=== PATIENT | male | born 1985 ===

== ENCOUNTER → 2020-03-27 15:59 | Outpatient (CLI) | payer OTHER, SELFPAY ==
[2020-03-27 18:27] LABS: COVID19 -Nasal RAPID Negative (Negative)
== END ==
PROVIDERS: Visit Provider Physician Assistant
DX: Z01.812 Encounter for preprocedural laboratory examination (principal); Z20.822 Contact with and (suspected) exposure to COVID-19
CPT/HCPCS: 87635

== ENCOUNTER 2020-03-29 11:21 | Observation (INO) | payer OTHER, SELFPAY ==
[2020-03-29] VITALS (21 sets, daily range): BP systolic 49–157; BP diastolic 21–93; PULSE 75–96; RESP 12–20; TEMP 35.8–37.2; O2SAT 95–100; BMI 26.6
--- NOTE | 2020-03-29 | PATH_ITS ---
[facility] Accession Number: [id number] . 01 Material submitted: . femur - RIGHT FEMORAL HEAD . 01 Clinical history: . OPB . 01 Diagnosis: Right Femoral Head, Resection: Consistent with degenerative joint disease (osteoarthritis). . Note: Sections show irregular cartilaginous thinning with degenerative changes consistent with degenerative joint disease/osteoarthritis. Clinical and radiographic correlation is recommended. [facility] 04/03/2020 1603 Local . 01 Electronically signed: . Agustin Quintana MD, Dermatopathologist NPI- [id number] . 01 Gross description: . The specimen is received in formalin, consists of a 6.0 x 5.5 x 5.4 cm femoral head and neck with a ragged bone margin. The fovea centralis measures 1.0 x 0.4 cm and there is a 2.0 x 0.8 x 0.7 cm ligamentum teres. The articular surface is blanton to blanton-white with focal areas of hemorrhage and eburnation. Sectioning reveals blanton-pink trabeculated cut surfaces. No masses are identified. [employer] sections are submitted following decalcification in cassettes A1-A2. ([id number]) /MRV 04/03/2020 1601 Local . 01 Pathologist provided ICD-10: M16.11 . 01 CPT . 110502, [id number] Performed at: [address] [facility] [address], [place], [place] [id number] MD Neftaly Gray MD Phone: [phone]
[2020-03-29] MEDS: LACTATED RINGERS 1,000 ML 42 ML IV ×3 (11:38→15:52)
--- NOTE | 2020-03-29 12:52 | PM.PREOP ---
Pre-operative Note COVID-19 COVID-19 status: Negative Result date/Date tested (Pos, Neg/Pending): 03/27/20 Interval Note History & Physical reviewed/Exam performed by Physician: Yes Changes to H&P: No H&P completed within 30 days and has changed as indicated here:: Plan for right anterior YENI
[2020-03-29] MEDS: CEFAZOLIN 2 GM/100 ML FROZ.PIGGY IV ×2 (13:18→22:39)
--- NOTE | 2020-03-29 13:59 | SUR.OPER ---
Supine on padded [place] table with bilateral legs secured in padded positioning boots and suspended in positioning spars, operative leg in traction per surgeon. Head on one pillow. Arm on non-operative side secured on padded armboard <90 degrees abduction. Arm on operative side padded and resting across chest then secured with tape over sheet. Padded perineal post in place per surgeon. Thyroid shield on patient
[2020-03-29] MEDS: TRANEXAMIC ACID 1,000 MG VIAL 2000 MG INJ ×2 (14:04→15:40)
[2020-03-29] MEDS: ROPIVACAINE 0.5% PF 5 MG/ML 20ML VIAL 40 ML INJ (14:06)
[2020-03-29] MEDS: MORPHINE 4 MG/ML INJ INJ (14:07)
[2020-03-29] MEDS: KETOROLAC 30 MG/ML VIAL INJ (14:07)
[2020-03-29] MEDS: SODIUM CHLORIDE IRRIG SOLUTION 250 ML, POVIDONE-IODINE SPONGE STICKS 1 APPLIC IRR (14:14)
--- NOTE | 2020-03-29 15:59 | P.OP_ITS ---
Operative Date/Time/Diagnoses Date of procedure: 03/29/20 Time of procedure: 16:00 Pre-op diagnosis: right hip OA Post-op diagnosis: same Procedure & Clinicians Procedure: right anterior [id number] YENI Same procedure as scheduled: Yes Indications: right HIP advacned OA resistant to further conservative measures Surgeon: Raffaele Allen Senior Maintenance Machinist: Vincent Keen Anesthesia Type: General and Spinal Operative Notes Findings: Right hip osteoarthritis with eburnation of the head as well as head and neck osteophytes. Acetabulum also showed [id number] arthritis with eburnation of the bone. Closure Type: primary Specimen(s): other (Head sent to pathology) Prosthetic devices, grafts, tissues, transplants, or devices: [employer]hew R3 cup 52 mm diameter 3 hole 2x 20mm screws 1x 25mm screw Biolox Delta ceramic 52 mm outside diameter by 36 mm inside diameter acetabular liner Size 7 anthology standard offset Delta Biolox ceramic head 36+ 4 mm Estimated Blood Loss (mL): 300 Procedure in detail: Patient was met in the preoperative holding area where the site and side of surgery were marked by . Informed consent had been reviewed in clinic was also refer you to the preoperative holding area. All last minute questions were answered. Patient was brought back in the operating room where he received a spinal anesthetic and was induced under general anesthesia. He was then transferred onto the [place] table where both feet were placed in well-padded [place] table boots. The right lower extremity then prepped and draped in normal sterile fashion. Surgical time-out was performed verifying the site and side of surgery as well as the implants available. Starting approximately 2 cm distal and 1 cm lateral to the ASIS aiming towards the fibular head a 7 cm long incision in the skin was made with a 10. Blade. Electrocautery was then used to dissect down to love the tensor fascia. A new 10. Blade was then used to incise the tensor fascia. A Allis clamp was placed on the medial leaflet of the tensor fascia and the tensor muscle itself was reflected laterally. A Cobra was then placed over the superior aspect of the femoral neck. A Meyerding retractor was then placed on the lateral border of the rectus femoris and retracted the rectus medially. This point had good exposure to the ascending branches of the for this femoral circumflex vessels. These were coagulated using electrocautery. A 2nd Cobra retractor was then placed under the inferior aspect of the femoral neck and a bent Hohmann retractors placed over the anterior lip of the acetabulum to give us good exposure for capsulotomy. At this point inverted T-shaped capsulotomy was then performed. A FiberWire suture was then used to tag the superior and inferior leaflets of the capsulotomy. The Cobra retractors then placed intracapsularly. This point we had good exposure femoral neck. A reciprocating saw was then used to make the femoral neck cut based off of our preoperative standing template. The femur was then externally rotated 45? and the head was removed with corkscrew. Bent Hohmann retractors were then replaced to give us good exposure to the acetabulum. The pulvinar was then removed using a suction and electrocautery. The labrum was then also removed. At this point we began reaming with a 44 mm Reamer. Fluoroscopy was brought in to match our preoperative template standing films to help direct reaming. We up sized by 2s until we got to a size 50 mm Reamer at which point we started to get some resistance. Then went up by 1-51 mm Reamer this was then used to touch ream the socket and then a 52 mm 3 hole R3 cup was selected. This was placed under fluoroscopic guidance. This had good purchase and the 1st of the [address] had good purchase. The 2nd screw did not have good purchase a 3rd screw was also placed. A trial liner was then placed. Then turned our attention to the femoral side femoral elevator hook was placed underneath the posterior aspect of the femur and the femur was then externally rotated to 120? and extend to the floor and adducted. A bent Hohmann was then placed over the superior aspect of the superior leaflet of the capsulotomy and the capsule was then released off the anterior shoulder of the greater trochanter. This point a large single prong retractor was then placed over the greater trochanter and a Arthur retractor was placed over the calcar. A controlled release of the short external rotators was then performed and the femur was then milled able to be elevated up into the wound. This point I then used a canal finer followed by a chili pepper broach and then began broaching. Started with a size 1 and then upsized to a size 3 and subsequently size 5 then began upsizing by ones to a 6 and 7. A calcar planed off the size 7 broach. We then placed a standard offset neck and reduced the hip with 36+ 0 head. Fluoroscopy was brought in the size 7 broach had good canal fill although we did appear about half a cm long on this side. We then dislocated the hip removed the broach and worked the broch to counter sink by several mm. We then calcar planed again. A size 7 anthology standard offset was then placed and was rotationally stable. We then returned to the acetabular side removed the trial liner and placed the 52 x 36 mm delta Biolox ceramic liner. Taking great care to make sure the liner was well centered. This was then malleted into place and verify that the ring was flush around the acetabular cup. I then selected a 36+ 0 trial head and reduced the hip this was stable to maximal external rotation however with 90? of external rotation and extension the floor started to lever out at about 2[address] to the floor. This point although our leg lengths were near perfect as headache is a 36+ 3 head to give more stability to the hip and avoid axial loading. A 36+ 3 mm ceramic head was then malleted onto the trunnion reduced a final time and was stable with maximal external rotation as well as external rotation to 90? and full extension to the floor. This point final fluoroscopic images were obtained. Local anesthetic was then infiltrated into the superior and inferior leaflet of the capsulotomy in the periarticular soft tissues. Betadine solution was then placed into the wound allowed to sit for several minutes. This was then lavaged with copious normal saline. The capsulotomy was then repaired using a running 1 suture and the FiberWire tag sutures were removed. The tensor fascia layer was then closed with a running Vicryl suture. Subcutaneous closure was then performed using a 2 0 Vicryl interrupted fashion followed by a running 3-0 Stratafix in the subcuticular layer followed by Dermabond and Aquacel dressing. Complications: none Post-operative Condition: stable Disposition: PACU Plan for aftercare: 24 hours post-op abx, ASA 81mg BID for DVT prophylaxis, WBAT RLE
--- NOTE | 2020-03-29 16:34 | DI.RAD.S_ITS ---
PROCEDURE: XR PELVIS 1-2V INDICATIONS: POST OPERATIVE RIGHT HIP TECHNIQUE: 1 view of the lower pelvis acquired. COMPARISON: [facility], CR, XR PELVIS W LATERAL HIP RT, 06/10/2016, 12:04. [facility], CR, XR PELVIS WITH LATERAL HIP RIGHT, 03/20/2020, 9:31. FINDINGS: Bones: Patient is status post right hip arthroplasty, with hardware components in expected positions. The hip joint appears congruent. The visualized bony structures appear intact. Mild left hip osteoarthritis. Soft tissues: Overlying postoperative changes are noted. No suspicious soft tissue densities. IMPRESSION: Expected postsurgical change for right hip arthroplasty. Dictated by: Raquel Dinero MD, PhD on 03/29/2020 at 16:48 Approved by: Raquel Dinero MD, PhD on 03/29/2020 at 16:50
--- NOTE | 2020-03-29 17:06 | SUR.PHASEI ---
Report to que Gil on floor. Pt VSS, denies pain or nausea and sitting up slightly drinking and talking.
[2020-03-29] MEDS: LACTATED RINGERS 1,000 ML 125 ML IV (18:02)
[2020-03-29] MEDS: LACTATED RINGERS 1,000 ML 1000 ML IV ×3 (18:35→21:14)
--- NOTE | 2020-03-29 18:55 | PC.NURSE ---
Addendum entered by Louise Christianson R.N. 03/29/20 23:32: around 2100, pt was hypotensive again 75/47 HR 80's at this time pt reported that he lifted his head up and became symptomatic, notified hospitalist, VO for 1L bolus LR. BP improving with bolus 89/56, supine position. Dr. Denny was also notified and ordered another HH. continue to monitor. Original Note: 1829: [employer] notified me that pt feels dizzy and diaphoretic. checked BP 53/27. placed pt on supine position, trendelenburg. contacted provider and anesthesiologist but unable to reach. notified hospitalist. verbal order for LR bolus. hospitalist came to assess patient. pt is now on tele. BP is slowly going up.
--- NOTE | 2020-03-29 19:14 | PM.CN ---
History of Present Illness Consult details Date Patient Seen: 03/29/20 Time Patient Seen: 18:30 Chief complaint: OPB Reason for consult: postop hypotension Requesting provider: Raffaele Allen Narrative: Patient is a 35-year-old male status post elective right hip replacement for osteoarthritis earlier today. Estimated blood loss noted at 300 cc. Patient became acutely hypotensive this evening. He was actually feeling dizzy and almost passed out in bed. He denies chest pain or dyspnea. He is not on any blood pressure lowering medications. His blood pressure was 53 systolic. I was asked to see patient for hospitalist consult. Meds Home Medications and Allergies Home Medications Medication Instructions Recorded Confirmed Type acetaminophen 650 mg PO Q6H PRN 03/28/20 03/29/20 History Allergies Allergy/AdvReac Type Severity Reaction Status Date / Time No Known Drug Allergies Allergy Verified 03/29/20 11:42 Review of Systems Review of Systems ROS: Yes All systems reviewed with the patient and are negative except as otherwise documented Exam Vital Signs (past 8 hours): - 03/29/20 11:44 03/29/20 16:13 03/29/20 16:15 Temperature 98.1 F 98.9 F Pulse Rate 93 H 79 82 Respiratory Rate 20 14 16 Blood Pressure 157/93 H 49/27 L 55/26 L Pulse Oximetry 100 95 97 03/29/20 16:17 03/29/20 16:18 03/29/20 16:22 Temperature Pulse Rate 75 82 82 Respiratory Rate 13 19 14 Blood Pressure 60/21 L 76/36 L 88/39 L Pulse Oximetry 96 97 98 03/29/20 16:28 03/29/20 16:33 03/29/20 16:43 Temperature Pulse Rate 83 91 H 84 Respiratory Rate 13 12 12 Blood Pressure 96/53 L 102/61 100/56 L Pulse Oximetry 98 98 98 03/29/20 16:58 03/29/20 17:20 03/29/20 17:50 Temperature 97.8 F 98.3 F Pulse Rate 81 89 93 H Respiratory Rate 13 16 16 Blood Pressure 103/59 L 117/62 103/60 Pulse Oximetry 100 100 95 03/29/20 18:20 Temperature 98.1 F Pulse Rate 96 H Respiratory Rate 16 Blood Pressure 92/61 Pulse Oximetry 97 Oxygen Delivery Method Room Air Narrative Exam Narrative: General: Well-developed well-nourished male who is a little lethargic and perspiring HEENT: Pupils equal, anicteric Neck: No lymphadenopathy Lungs: Clear to auscultation Heart: Regular rate and rhythm, no murmur Abdomen: Soft, nontender, no HSM Extremities: Warm, no edema Neurological: Well oriented, able to follow commands, nonfocal Assessment & Plan Assessment & Plan narrative: This is a 35-year-old otherwise healthy male status post elective right hip replacement with postop hypotension. 1. Postop hypotension -likely effect of anesthesia and blood loss -ordered bolus 1 L LR then re-evaluate -telemetry monitoring while hypotensive
[2020-03-29 20:56] LABS: Add Manual Diff / Slide Review NO; Basophils Absolute Auto 0 /uL (0-100); Basophils Percent Auto 0.1 % (0-2); Eosinophils Absolute Auto 0 /uL (0-450); Hematocrit 32.9 % (41-53); Hemoglobin 10.9 g/dL (13.5-17.5); Lymphocytes Absolute Auto 1300 /uL (1100-4500); Lymphocytes Percent Auto 6.3 % (25-40); Mean Corpuscular HGB Conc 33.1 % (30-36); Mean Corpuscular Hemoglobin 28.4 PG (26-34); Mean Corpuscular Volume 85.9 fL (80-100); Monocytes Absolute Auto 900 /uL (0-900); Monocytes Percent Auto 4.2 % (3-14); Neutrophils Absolute Auto 18300 /uL (1500-7000); Neutrophils Percent Auto 89.4 % (50-75); Platelet Count 188 X10^3/uL (150-400); Red Blood Cell Count 3.83 X10^6/uL (4.5-5.9); Red Cell Distribution Width 12.5 % (11.6-14.8); White Blood Cell Count 20.5 X10^3/uL (4.5-11.0)
[2020-03-29] MEDS: ASPIRIN EC 81 MG TABLET PO (22:03)
[2020-03-29 22:15] LABS: Bacteria Urine None Seen; RBC Urine None Seen (0-5/HPF); WBC Urine None Seen (0-5/HPF)
[2020-03-29 22:21] LABS: Appearance Urine UA CLEAR; Bilirubin Urine UA NEGATIVE (NEGATIVE); Color Urine UA YELLOW; Glucose Urine UA NEGATIVE (Negative); Ketones Urine UA TRACE (NEGATIVE); Leukocyte Esterase Urine UA NEGATIVE (NEGATIVE); Nitrite Urine UA NEGATIVE (Negative); Occult Blood Urine UA NEGATIVE (Negative); Protein Urine UA NEGATIVE (Negative); Urobilinogen Urine UA 0.2 E.U./dL (0.2)
[2020-03-29 22:28] LABS: Culture Indicated Urine Cult Not Indicated; Urine Comments Microscopic Normal
[2020-03-29 22:42] LABS: Hemoglobin 9.8 g/dL (13.5-17.5)
[2020-03-29 22:51] LABS: Hematocrit 29.7 % (41-53)
--- NOTE | 2020-03-30 00:24 | PC.NURSE ---
patient is alert and oriented. Breath sounds CTA with RA sat of 98%. HRR. BP remaining low at 90's/50's but is asymptomatic but remaining supine. Telemetry reading was SR. Denies nausea. BT present and is passing flatus. Denies dysuria, frequency or urgency with urination and has been using urinal. Able to move himself in bed. Gait not assessed but patient reports prior to surgery was using a cane for ambulation. Aquacel dressing to right anterior hip is CDI. Denies pain. CMS is intact. Wearing bilateral calf SCD's. Fall risk score is moderate and bed alarm is activated.
[2020-03-30 03:00] VITALS: BP 97/45; PULSE 97; RESP 16; TEMP 36.6; O2SAT 98
[2020-03-30] MEDS: CEFAZOLIN 2 GM/100 ML FROZ.PIGGY IV (04:36)
[2020-03-30 05:51] LABS: Hematocrit 26.3 % (41-53); Hemoglobin 8.8 g/dL (13.5-17.5)
[2020-03-30] MEDS: LACTATED RINGERS 1,000 ML 150 ML IV (06:22)
[2020-03-30 07:51] VITALS: BP 108/60; PULSE 96; RESP 19; TEMP 37; O2SAT 100
[2020-03-30] MEDS: ASPIRIN EC 81 MG TABLET PO ×2 (08:32→20:06)
[2020-03-30] MEDS: DOCUSATE 100 MG CAPSULE PO ×2 (08:32→20:06)
[2020-03-30] MEDS: ACETAMINOPHEN 325 MG TABLET 650 MG PO ×3 (08:32→20:06)
--- NOTE | 2020-03-30 10:06 | PM.PNPO.1 ---
Subjective Subjective Date Patient Seen: 03/30/20 Time Patient Seen: 10:06 Interval history: Patient's pain is mild. Patient has had some dizziness when elevating head of bed. No fever or chills. No nausea or vomiting. Has not yet been out of bed. Denies shortness of breath or chest pain. Exam Vital Signs (past 8 hours): - 03/30/20 03:00 03/30/20 07:51 Temperature 97.8 F 98.6 F Pulse Rate 97 H 96 H Respiratory Rate 16 19 Blood Pressure 97/45 L 108/60 Pulse Oximetry 98 100 Oxygen Delivery Method Room Air Oxygen Flow Rate 0 Narrative Exam Narrative: 35-year-old male resting comfortably in bed in no apparent distress. Right anterior hip dressing clean, dry and intact. Motor functions intact distal bilateral lower extremities. Sensation grossly intact light touch bilateral lower extremities. Both calves are nontender to palpation. Objective Labs Result Diagrams: 03/30/20 05:30 Labs: Laboratory Results - last 24 hr 03/29/20 03/29/20 03/29/20 20:48 22:14 22:32 WBC 20.5 H RBC 3.83 L Hgb 10.9 L 9.8 L Hct 32.9 L 29.7 L MCV 85.9 MCH 28.4 MCHC 33.1 RDW 12.5 Plt Count 188 Neut % (Auto) 89.4 H Lymph % (Auto) 6.3 L [place] % (Auto) 4.2 Eos % (Auto) 0.0 L Baso % (Auto) 0.1 Neut # (Auto) 69383 H Lymph # (Auto) 1300 [place] # (Auto) 900 Eos # (Auto) 0 Baso # (Auto) 0 Urine Color Yellow Urine Appearance Clear Urine pH 6.0 Ur Specific [place] 1.020 Urine Protein Negative Urine Glucose (UA) Negative Urine Ketones Trace H Urine Occult Blood Negative Urine Nitrate Negative Urine Bilirubin Negative Urine Urobilinogen 0.2 Ur Leukocyte Esterase Negative Urine RBC None seen Urine WBC None seen Urine Bacteria None seen Ur Culture Indicated? Cult not indicated Micro UA Comment Microscopic normal Blood Type Antibody Screen 03/29/20 03/30/20 22:32 05:30 WBC RBC Hgb 8.8 L Hct 26.3 L MCV MCH MCHC RDW Plt Count Neut % (Auto) Lymph % (Auto) [place] % (Auto) Eos % (Auto) Baso % (Auto) Neut # (Auto) Lymph # (Auto) [place] # (Auto) Eos # (Auto) Baso # (Auto) Urine Color Urine Appearance Urine pH Ur Specific [place] Urine Protein Urine Glucose (UA) Urine Ketones Urine Occult Blood Urine Nitrate Urine Bilirubin Urine Urobilinogen Ur Leukocyte Esterase Urine RBC Urine WBC Urine Bacteria Ur Culture Indicated? Micro UA Comment Blood Type O Positive Antibody Screen Negative [facility] Medical History Blood pressure elevated without history of HTN Hip bursitis IT band syndrome Lipoma of buttock Primary osteoarthritis of right hip Right knee pain (~2012) Suspected sleep apnea Tendinitis of right hip flexor Social History household members: significant other Smoking Status: Never smoker Assessment & Plan Post-op Postoperative Procedures: Procedures Operation Date: 03/29/20 13:15 Actual Procedures Side Surgeon p Total Hip Arthroplasty/Anterior Approach Right Raffaele Allen MD Postop day 1 status post right anterior ceramic on ceramic total hip arthroplasty. Aspirin 81 mg b.i.d. for DVT prophylaxis. Weightbearing as tolerated right lower extremity. Mobilize with physical therapy. Possible discharge home today. Patient does have assistance at home. WBC elevated yesterday and incentive spirometer ordered. Postop hypotension- hospitalist consulted yesterday. Likely effect of anesthesia and blood loss. Bolus of 1 L lactated Ringer's ordered.
--- NOTE | 2020-03-30 10:35 | PT.IIE ---
Current Diagnoses Unilateral primary osteoarthritis, right hip (03/29/20) Other symptoms and signs involving the nervous system (03/29/20) Surgery Performed Operation Date: 03/29/20 13:15 Actual Procedures p Total Hip Arthroplasty/Anterior Approach(Right) - Raffaele Allen MD Medical History (Last Reviewed 03/30/20 @ 10:08 by Vincent Keen PA-C) Blood pressure elevated without history of HTN Hip bursitis IT band syndrome Lipoma of buttock Primary osteoarthritis of right hip Right knee pain (~2012) Suspected sleep apnea Tendinitis of right hip flexor Physical Therapy Inpatient Evaluation/Re-Eval M1 PT/OT-IP Prior Functional Status Start: 03/30/20 09:03 Freq: NEEDED Status: Active Protocol: Document 03/30/20 10:35 AW (Rec: 03/30/20 12:37 AW [id number]) Medical Review Prior Functional Status Medical History Reviewed Yes Communication WNL. Pt is an effective verbal communicator. 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 For the past few months, he has been using a cane after work due to increased hip pain. Activities of Daily Living and IADL's Pt admits to needing some help with shoes and socks. He is independent for showers. He admits to some difficulty getting on and off the toilet but has not required assist. 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 Social History Household Members significant other Living Arrangements Apartment/Condo Number of Floors (Floors) Two Floors Number of Stairs To Enter/Railing? Level entrance in to apartment with kitchen and living room on main level. Pt climbs 10 steps + landing + 8 steps to bedroom level with right railing on all stairs. Home Environment Standard Height Toilet,Tub/ Shower Home Equipment Straight Cane,Long Handled Shoe Horn,Grab Bars In Shower Employment Status Accounts Receivable Specialist Employed Additional Social History Comment Pt states there is a sink/ vanity on the right side of the toilet. He lives with his significant other who will be home full-time to assist for the first several days. M2 PT-IP Current Condition Start: 03/30/20 09:03 Freq: NEEDED Status: Active Protocol: Document 03/30/20 10:35 AW (Rec: 03/30/20 12:37 AW [id number]) Physical Therapy Current Condition Current Condition Evaluation Date 03/30/20 Treatment Diagnosis s/p R YENI with anterior approach; difficulty in walking Onset Date 03/29/20 Precautions Anterior Hip Precautions No Hip Extension,No Hip External Rotation Other Precautions orthostatic BP Weight Bearing Status Weight Bearing Status Weight Bear as Tolerated M3 PT-IP Subjective Start: 03/30/20 09:03 Freq: NEEDED Status: Active Protocol: Document 03/30/20 10:35 AW (Rec: 03/30/20 12:37 AW [id number]) Subjective Physical Therapy Visit Type Type Initial Evaluation Visit Start Time 10:05 Visit Stop Time 10:35 Total Visit Minutes 30 Notes Pt's SO Andrew present throughout session. Physical Therapy Visit Comments Patient Comments Pt is willing to participate with PT Patient Goals Return home with SO support. Therapy Pain Assessment Pain When Pain Assessed At Rest Location right hip Intensity 0 Scale Used increased with mobility to 1/ 10 Pain Management Techniques Apply Cold,Timing of Activity with Medications M4 PT-IP Mobility and Gait Start: 03/30/20 09:03 Freq: NEEDED Status: Active Protocol: Document 03/30/20 10:35 AW (Rec: 03/30/20 12:37 AW [id number]) PT-Bed Mobility Assessment Supine to Sit Supine to Sit Contact Guard Assistance Scooting Scooting to Edge of Bed Standby Assistance PT-Transfer Assessment Sit to and From Stand Sit to and from Stand Contact Guard Assistance,1 Person Assistance,Use of Upper Extremities Equipment Transfer Assistive Device Gait Belt,Front Wheeled Walker Orthotic/Prosthetic Devices or Brace: No Transfers Transfer Destination Chair Transfer Technique Stand Step Pivot Transfer Ability Level of Assist Contact Guard Assistance,Use of Upper Extremities Comments Mobility Comments Pt was lying in the bed as PT arrived. BP supine was 114/70 HR 109. Instructed pt in anterior hip precautions. He required CGA to complete supine to long sitting and then to pivot his hips toward right EOB. After two minutes, BP was 122/81 HR 120. Pt stood with CGA and used FWW to shift weight laterally. He began to complain of lightheadedness. BP was 100/90 HR 127. Pt was instructed to sit EOB until symptoms cleared . He then stood from the bed CGA and used the FWW to ambulate 5 feet to the chair, transferring CGA. BP was 115/ 58 HR 110. Pt was able to complete sit <> stand from the chair CGA. Pt was positioned in the chair with call light and all needs in reach. Fresh ice pack was provided for anterior hip as pt was beginning to notice increase in pain as noted above. Pt agreed to use the call light for all mobility needs. Gait Assessment Gait Gait Assistance Required: Contact Guard Assist Distance (Feet) 5 Able to Maintain Weight Bearing Status Yes During Gait Assistive Devices Assistive Device Gait Belt,Front Wheeled Walker Orthotic/Prosthetic Devices or Brace: No Gait Deviations General Gait Pattern Antalgic,Decreased Stride Length,Decreased Feet Clearance,Flexed Trunk,Step-to Gait Factors Limiting Gait Function Factors Limiting Gait Function Decreased Activity Tolerance, Decreased Strength,Pain Comments Gait Comments Transfer only. See mobility comments for details. Stair Climbing Assessment Comments Stair Climbing Comments Not assessed. PT-Balance Assessment Sitting Balance and Reactions Static Sitting Balance Ability Good Dynamic Sitting Balance Ability Good Standing Balance and Reactions Static Standing Balance Ability Good Dynamic Standing Balance Ability Good Device Used FWW M5 PT-IP Objective Assessments Start: 03/30/20 09:03 Freq: NEEDED Status: Active Protocol: Document 03/30/20 10:35 AW (Rec: 03/30/20 12:37 AW [id number]) Orientation Orientation/Cognition Level of Alertness Alert Orientation Name,Day of Week,Place, Situation Language Function Ability No Deficits Noted Safety Awareness Understands Safety Issues Memory Description No Deficits Noted Gross Range of Motion Lower Extremity ROM Assessment Right Impaired Strength Lower Extremity Strength Assessment Right Impaired Hip 3+/5 Knee 4/5 Ankle 4+/5 Comments Strength Comments LLE grossly 5/5 Sensation Assessment Sensation Gross Sensation WNL M6 PT-IP Treatment Start: 03/30/20 09:03 Freq: NEEDED Status: Active Protocol: Document 03/30/20 10:35 AW (Rec: 03/30/20 12:37 AW [id number]) Physical Therapy Treatment Exercises Exercises Ankle Pumps,Gluteal Sets,Quad Sets,Heel Slides Education Education Provided Precautions,Weight Bearing Status,Post-Op Packet,Safety Other Treatments Other Treatment Performed Provided education on role of PT, plan of care, weightbearing status, and rationale for use of an assistive device in the postoperative phase. M7 PT-IP Assessment and Plan Start: 03/30/20 09:03 Freq: NEEDED Status: Active Protocol: Document 03/30/20 10:35 AW (Rec: 03/30/20 12:37 AW [id number]) PT Summary Assessment and Plan Potential Rehabilitation Potential Good Status of Condition at Evaluation Evolving Summary Impairments Pain,ROM,Strength,Balance,Bed Mobility,Transfers,Gait Assessment Summary Anastacio is a 35 yo man seen for PT evaluation on POD1 following R YENI with anterior approach. 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 He has been needing to use a cane after long shifts due to increasing hip pain. On evaluation, pt is limited by dizziness with change in position. Orthostatic were slightly positive and patient was tachycardic throughout. He required CGA with all mobility using FWW. Pt understands recommendation for use of FWW at this time. Once pt is medically cleared, he will be safe to discharge to home environment with his significant other providing assist. Goals Bed Mobility Goal Independent Transfer Goal Independent,Front Wheeled Walker Gait Goal Standby Assistance,Front Wheel Walker Gait Distance 200 Other Goals - up/down 10 steps with R rail ascending SBA Days to Meet Goals 3 Frequency of Treatment Frequency Of Treatment Twice a Day Treatment Plan Physical Therapy Treatment Plan Bed Mobility Training,Transfer Training,Gait Training, Therapeutic Exercise,Balance Retraining,Post Op Education, Discharge Planning,Hot or Cold Pack,Neuromuscular Re-ed Other Recommendations and Next Treatment monitor VS; gait training with Focus FWW if BP stable; stairs when able Recommendations To Nursing Amount of Assist Needed 1 Person Assist Discharge Recommendations PT Discharge Recommendations Home with Assistance, Outpatient PT Equipment Needed for Home Before FWW Discharge Transportation Needs at Discharge Private Vehicle
[2020-03-30 10:46] VITALS: O2SAT 100
[2020-03-30 11:20] VITALS: BP 110/64; PULSE 89; RESP 19; TEMP 36.8; O2SAT 97
--- NOTE | 2020-03-30 12:34 | PC.NURSE ---
pt spouse help pt using urinal and pt spouse emptying the urine
--- NOTE | 2020-03-30 14:10 | PT.IPTN ---
Current Diagnoses Unilateral primary osteoarthritis, right hip (03/29/20) Other symptoms and signs involving the nervous system (03/29/20) Surgery Performed Operation Date: 03/29/20 13:15 Actual Procedures p Total Hip Arthroplasty/Anterior Approach(Right) - Raffaele Allen MD Physical Therapy Treatment Note M2 PT-IP Current Condition Start: 03/30/20 09:03 Freq: NEEDED Status: Active Protocol: Document 03/30/20 10:35 AW (Rec: 03/30/20 12:37 AW [id number]) Physical Therapy Current Condition Current Condition Evaluation Date 03/30/20 Treatment Diagnosis s/p R YENI with anterior approach; difficulty in walking Onset Date 03/29/20 Precautions Anterior Hip Precautions No Hip Extension,No Hip External Rotation Other Precautions orthostatic BP Weight Bearing Status Weight Bearing Status Weight Bear as Tolerated M3 PT-IP Subjective Start: 03/30/20 09:03 Freq: NEEDED Status: Active Protocol: Document 03/30/20 14:10 AW (Rec: 03/30/20 14:41 AW [id number]) Subjective Physical Therapy Visit Type Type Treatment Note Visit Start Time 13:45 Visit Stop Time 14:10 Total Visit Minutes 25 Notes Pt's CAREY Morales present throughout session. Physical Therapy Visit Comments Patient Comments Pt has been sitting up in the chair since AM treatment, is willing to work with PT. Therapy Pain Assessment Pain When Pain Assessed At Rest Pain Present Pain Present Pain Reported Location right hip Intensity 0 Scale Used increased with mobility to 1/ 10 Pain Management Techniques Apply Cold,Timing of Activity with Medications M4 PT-IP Mobility and Gait Start: 03/30/20 09:03 Freq: NEEDED Status: Active Protocol: Document 03/30/20 14:10 AW (Rec: 03/30/20 14:41 AW [id number]) PT-Transfer Assessment Sit to and From Stand Sit to and from Stand Contact Guard Assistance,1 Person Assistance,Use of Upper Extremities Equipment Transfer Assistive Device Gait Belt,Front Wheeled Walker Orthotic/Prosthetic Devices or Brace: No Transfers Transfer Destination Chair,Toilet Transfer Technique Stand Step Pivot Transfer Ability Level of Assist Standby Assistance,Use of Upper Extremities Comments Mobility Comments Pt was sitting up in the chair as PT arrived. He stated dizziness had been less bothersome and he was interested in walking farther. BP was 117/62 HR 98 in sitting. He stood from the chair [facility]. After two minutes, standing BP was 136/68 HR 112. After reviewing anterior hip precautions, pt ambulated 75 feet SBA to [facility] with the FWW and his girlfriend providing w /c follow. After completing stair training, pt returned to the room and practiced toilet transfer x 2 using left-sided grab bar [facility]. He then ambulated to the chair and transferred SBA. BP after activity was 129/72 HR 104. Pt was left with his girlfriend. Call light was in reach. Pt agreed to use the call light for all mobility needs. Gait Assessment Gait Gait Assistance Required: Standby Assistance,Contact Guard Assist Distance (Feet) 75 Able to Maintain Weight Bearing Status Yes During Gait Assistive Devices Assistive Device Gait Belt,Front Wheeled Walker Orthotic/Prosthetic Devices or Brace: No Gait Deviations General Gait Pattern Antalgic,Decreased Stride Length,Decreased Feet Clearance,Flexed Trunk,Step-to Gait Factors Limiting Gait Function Factors Limiting Gait Function Decreased Activity Tolerance, Decreased Strength,Pain Comments Gait Comments Pt ambulated 75 feet x 2 with FWW SBA to [facility]. Pt needed occasional cues to keep step length shorter to avoid excessive hip extension. Pt showed good attention to rotation precaution during turns. Stair Climbing Assessment Evaluation Level of Assist On Stairs Contact Guard Assistance Devices Stair Climbing Assistive Devices Left Railing,Right Railing Technique/Endurance Stair Climbing Direction Ascend and Descend Stair Climbing Technique Step to Step Number of Steps Climbed 3 Stair Climbing Set # Repetitions (reps) 3 Comments Stair Climbing Comments Pt required cues on first rep for sequencing. He clarified that although there is a railing only on the right side , he is able to touch the wall on the left side. Therefore, he practiced with bilateral rails - gripping the right rail and using left rail for contact only. PT-Balance Assessment Sitting Balance and Reactions Static Sitting Balance Ability Good Dynamic Sitting Balance Ability Good Standing Balance and Reactions Static Standing Balance Ability Good Dynamic Standing Balance Ability Good Device Used FWW M5 PT-IP Objective Assessments Start: 03/30/20 09:03 Freq: NEEDED Status: Active Protocol: Document 03/30/20 10:35 AW (Rec: 03/30/20 12:37 AW [id number]) Orientation Orientation/Cognition Level of Alertness Alert Orientation Name,Day of Week,Place, Situation Language Function Ability No Deficits Noted Safety Awareness Understands Safety Issues Memory Description No Deficits Noted Gross Range of Motion Lower Extremity ROM Assessment Right Impaired Strength Lower Extremity Strength Assessment Right Impaired Hip 3+/5 Knee 4/5 Ankle 4+/5 Comments Strength Comments LLE grossly 5/5 Sensation Assessment Sensation Gross Sensation WNL M6 PT-IP Treatment Start: 03/30/20 09:03 Freq: NEEDED Status: Active Protocol: Document 03/30/20 14:10 AW (Rec: 03/30/20 14:41 AW [id number]) Physical Therapy Treatment Education Education Provided Precautions,Safety M7 PT-IP Assessment and Plan Start: 03/30/20 09:03 Freq: NEEDED Status: Active Protocol: Document 03/30/20 14:10 AW (Rec: 03/30/20 14:41 AW [id number]) PT Summary Assessment and Plan Potential Rehabilitation Potential Good Status of Condition at Evaluation Stable Summary Impairments Pain,ROM,Strength,Balance,Bed Mobility,Transfers,Gait Progress Towards Goals Progressing Toward Goals Assessment Summary Anastacio was able to progress his mobility this afternoon. BP was stable and pt denied dizziness. HR remains elevated 98-112 during this treatment. Pt and his significant other will be able to manage at home when the patient is medically cleared. Pt is waiting on a call from PT office to schedule initial outpatient eval. This PT encouraged pt to call and get scheduled within the next week if possible. Discussed need for FWW with care management who will obtain an order. Goals Bed Mobility Goal Independent Transfer Goal Independent,Front Wheeled Walker Gait Goal Standby Assistance,Front Wheel Walker Gait Distance 200 Other Goals - up/down 10 steps with R rail ascending SBA Days to Meet Goals 2 Frequency of Treatment Frequency Of Treatment Twice a Day Treatment Plan Physical Therapy Treatment Plan Bed Mobility Training,Transfer Training,Gait Training, Therapeutic Exercise,Balance Retraining,Post Op Education, Discharge Planning,Hot or Cold Pack,Neuromuscular Re-ed Other Recommendations and Next Treatment monitor VS; gait training with Focus FWW if BP stable; stairs when able Recommendations To Nursing Amount of Assist Needed Standby Assistance Discharge Recommendations PT Discharge Recommendations Home with Assistance, Outpatient PT Equipment Needed for Home Before FWW Discharge Transportation Needs at Discharge Private Vehicle
--- NOTE | 2020-03-30 14:27 | PC.NURSE ---
Pt worked with PT and was able to walk in the [place]terson. Denies pain of any kind. States he still is having dizziness when he gets up but it has improved greatly. Spouse and Pt state that they are still very worried that because he is still having a bit of dizziness when he gets up that he should wait until tomorrow morning for discharge home. Discussed discharge with Vincent MENDOZA this morning and he stated that if the Pt really wanted to go home and felt safe that he could be called and would place the discharge orders. So will hold discharge until tomorrow.
--- NOTE | 2020-03-30 14:32 | CM.DANOTE ---
Addendum entered by Rama Baer LPN 03/30/20 14:54: Met as planned with pt and Bryan. Pt clarifies that his primary residence is in [place] but he stays with Nery who resides in [facility]. PCP: Rama Ambrose, [facility]. Both confirm that pt is still dizzy and he will be staying here until tomorrow with expectation that he will be doing better medically and can then d/c home. Let him know that the FWW would be issued on the day of d/c (and Brittany/PT is updated). P: home, likely tomorrow. Will be following. Original Note: Discharge Planning/Care Management DCP: assessment: Case received, EMR reviewed. Discussed with PT Brittany after her session with pt. Pt is a 35 year old male who admitted yesterday for a scheduled R YENI/anterior approach. Surgeon: Dr. Alejandro Devries: Chad Silveira Consulting: hospitalist Dr. Means for hypotension Pt resides in [place] with his significant other Bryan. See Template below for more specifics. Will check in now with pt for introduction of self and role and provide PT Brittany with the FWW order. P: home when stable for same with outpt PT planned. Caregiver training has been ongoing with Bryan during the PT sessions. CM Discharge Assessment Start: 03/30/20 14:29 Freq: Status: Active Protocol: Document 03/30/20 14:29 ITV (Rec: 03/30/20 14:32 ITV [id number]) Discharge Planning Assessment Advance Directives? No History Provided By Patient,Medical Record Prior Living Arrangements Apartment/Condo Comment stairs Household Members significant other Comment Bryan Crowell Is patient alert and oriented? Yes DME Already Rented / Owned Cane Comment PT recommends FWW and requests order for same/obtained. PT will issue from the consignment closet as per her discussion with the pt. Discharge Plan Home: outpt PT planned Pre-Anesthesia Assessment Start: 03/28/20 08:28 Freq: Status: Complete Protocol: Document 03/28/20 08:28 [facility] (Rec: 03/28/20 08:43 [facility] [id number]) Pre-Anesthesia Assessment Patient Information Reviewed Via Chart Review Diagnostic Results BMP/CMP,CBC,EKG,Other Comment A1c Seen Specialist in Last 12 Months Yes Specialist Seen Orthopedist Comment 03/28/20 Left msg w/SNO re clearance Height 167.64 cm Anesthesia Review Requested No Picture Frames Inspector No Musculoskeletal Symptoms Abnormal Gait,Arthralgias, Joint Pain Suspected Sleep Apnea Yes: Referred to [facility] Sleep Medicine HgbA1C 5.6 Date 03/22/20
[2020-03-30 15:47] VITALS: BP 124/62; PULSE 91; RESP 18; TEMP 37.5; O2SAT 100
[2020-03-30 19:34] VITALS: BP 121/69; PULSE 98; RESP 18; TEMP 37.3; O2SAT 98
[2020-03-31 00:15] VITALS: BP 121/64; PULSE 90; RESP 16; TEMP 37.2; O2SAT 99
[2020-03-31 03:40] VITALS: BP 120/60; PULSE 95; RESP 16; TEMP 36.8; O2SAT 98
[2020-03-31] MEDS: OXYCODONE IR 5 MG TABLET PO ×3 (03:45→13:00)
[2020-03-31] MEDS: SODIUM CHLORIDE 0.9% FLUSH 10 ML IV (07:52)
[2020-03-31] MEDS: ACETAMINOPHEN 325 MG TABLET 650 MG PO (07:52)
[2020-03-31] MEDS: ASPIRIN EC 81 MG TABLET PO (07:52)
[2020-03-31] MEDS: DOCUSATE 100 MG CAPSULE PO (07:53)
[2020-03-31 08:11] VITALS: BP 121/71; PULSE 89; RESP 20; TEMP 37.1; O2SAT 100
--- NOTE | 2020-03-31 08:46 | PT.IPTN ---
Current Diagnoses Unilateral primary osteoarthritis, right hip (03/29/20) Other symptoms and signs involving the nervous system (03/29/20) Surgery Performed Operation Date: 03/29/20 13:15 Actual Procedures p Total Hip Arthroplasty/Anterior Approach(Right) - Raffaele Allen MD Physical Therapy Treatment Note M2 PT-IP Current Condition Start: 03/30/20 09:03 Freq: NEEDED Status: Active Protocol: Document 03/30/20 10:35 AW (Rec: 03/30/20 12:37 AW [id number]) Physical Therapy Current Condition Current Condition Evaluation Date 03/30/20 Treatment Diagnosis s/p R YENI with anterior approach; difficulty in walking Onset Date 03/29/20 Precautions Anterior Hip Precautions No Hip Extension,No Hip External Rotation Other Precautions orthostatic BP Weight Bearing Status Weight Bearing Status Weight Bear as Tolerated M3 PT-IP Subjective Start: 03/30/20 09:03 Freq: NEEDED Status: Active Protocol: Document 03/31/20 08:16 LD (Rec: 03/31/20 12:13 LD [id number]) Subjective Physical Therapy Visit Type Type Treatment Note Visit Start Time 08:16 Visit Stop Time 08:46 Total Visit Minutes 30 Notes Pt's SO Andrew present throughout session. Provided caregiver training with Andrew. Physical Therapy Visit Comments Patient Comments Pt has Therapy Pain Assessment Pain When Pain Assessed At Rest Pain Present Pain Present Pain Reported Location right hip Intensity 5 Scale Used Numeric (0 - 10) Pain Management Techniques Apply Cold,Timing of Activity with Medications M4 PT-IP Mobility and Gait Start: 03/30/20 09:03 Freq: NEEDED Status: Active Protocol: Document 03/31/20 08:16 LD (Rec: 03/31/20 12:13 LD [id number]) PT-Bed Mobility Assessment Supine to Sit Supine to Sit Standby Assistance Scooting Scooting to Edge of Bed Standby Assistance PT-Transfer Assessment Sit to and From Stand Sit to and from Stand Contact Guard Assistance,1 Person Assistance,Use of Upper Extremities Equipment Transfer Assistive Device Gait Belt,Front Wheeled Walker Orthotic/Prosthetic Devices or Brace: No Transfers Transfer Destination Chair,Toilet Transfer Technique Stand Step Pivot Transfer Ability Level of Assist Standby Assistance,Use of Upper Extremities Comments Mobility Comments Pt was lying in bed upon arrival w/ girlfriend present. Pt stated dizziness due to medication recieved 20 min prior. BP in supine: 128/69. Recalled 2/2 post op precautions. Pt completed supine>sit SBA w/ awareness of precautions. BP in sittin/75. Pt then completed sit> stand CGA and ambulated w/ FWW CGA ~75 x2 ft. After completing stair mgmt, pt returned to room, ambulated an additional ~20 ft then requested to sit in chair SBA. Reviewed post op ex. Call light and other needs placed within reach. Girlfriend present when leaving. Gait Assessment Gait Gait Assistance Required: Standby Assistance,Contact Guard Assist Distance (Feet) 150 Able to Maintain Weight Bearing Status Yes During Gait Assistive Devices Assistive Device Gait Belt,Front Wheeled Walker Orthotic/Prosthetic Devices or Brace: No Gait Deviations General Gait Pattern Antalgic,Decreased Stride Length,Decreased Feet Clearance,Flexed Trunk,Step-to Gait Factors Limiting Gait Function Factors Limiting Gait Function Decreased Activity Tolerance, Decreased Strength,Pain Comments Gait Comments Pt ambulated a total of 170 ft w/ FWW CGA. Pt demonstrated good safety awareness while maintaining post op precautions during ambulation and turns. Stair Climbing Assessment Evaluation Level of Assist On Stairs Contact Guard Assistance Devices Stair Climbing Assistive Devices Left Railing,Right Railing Technique/Endurance Stair Climbing Direction Ascend and Descend Stair Climbing Technique Step to Step Number of Steps Climbed 3 Stair Climbing Set # Repetitions (reps) 4 Comments Stair Climbing Comments Pt required CGA w/ B hand rails, providing cues to health technician R hand rail and contact w/ L rail. Pt completed 12 steps total, ascending w/ uninvoloved LE first and descending w/ involved LE. PT-Balance Assessment Sitting Balance and Reactions Static Sitting Balance Ability Good Dynamic Sitting Balance Ability Good Standing Balance and Reactions Static Standing Balance Ability Good Dynamic Standing Balance Ability Good Device Used FWW M5 PT-IP Objective Assessments Start: 03/30/20 09:03 Freq: NEEDED Status: Active Protocol: Document 03/31/20 08:16 LD (Rec: 03/31/20 12:13 LD [id number]) Orientation Orientation/Cognition Level of Alertness Alert Orientation Name,Day of Week,Place, Situation Language Function Ability No Deficits Noted Safety Awareness Understands Safety Issues Memory Description No Deficits Noted M6 PT-IP Treatment Start: 03/30/20 09:03 Freq: NEEDED Status: Active Protocol: Document 03/31/20 08:16 LD (Rec: 03/31/20 12:13 LD [id number]) Physical Therapy Treatment Exercises Exercises Ankle Pumps,Gluteal Sets,Quad Sets,Heel Slides Education Education Provided Precautions,Post-Op Packet, Safety M7 PT-IP Assessment and Plan Start: 03/30/20 09:03 Freq: NEEDED Status: Active Protocol: Document 03/31/20 08:16 LD (Rec: 03/31/20 12:13 LD [id number]) PT Summary Assessment and Plan Potential Rehabilitation Potential Good Status of Condition at Evaluation Stable Summary Impairments Pain,ROM,Strength,Balance,Bed Mobility,Transfers,Gait Progress Towards Goals Progressing Toward Goals Assessment Summary Pt reported dizziness w/ pain level 5/10, agreeing to work with therapy. Pt required CGA> SBA with mobility, demonstrating good safety awareness by maintaining post op precautions. Pt improved gait distance w/ FWW CGA and stair mgmt using B hand rails compared to last tx. Pt reported no increased pain during mobility. Pt cautious w / sitting at 90, stating more of a habit. Girlfriend questioned about pt using hip flexors, encouraged pt to use hip flexors, is within safety precautions and increase mobility within normal posture . FWW was dispensed prior to todays tx by hospital staff. Provided education and caregiver training. Still waiting to hear back to schedule outpatient appt. Pt will be safe to discharge home once medically stable with girlfriend providing assist. Goals Bed Mobility Goal Independent Transfer Goal Independent,Front Wheeled Walker Gait Goal Standby Assistance,Front Wheel Walker Gait Distance 200 Other Goals - up/down 10 steps with R rail ascending SBA Days to Meet Goals 2 Frequency of Treatment Frequency Of Treatment Twice a Day Treatment Plan Physical Therapy Treatment Plan Bed Mobility Training,Transfer Training,Gait Training, Therapeutic Exercise,Balance Retraining,Post Op Education, Discharge Planning,Hot or Cold Pack,Neuromuscular Re-ed Other Recommendations and Next Treatment monitor VS: gait training with Focus FWW if BP stable; continue stairs when able Recommendations To Nursing Amount of Assist Needed Standby Assistance Discharge Recommendations PT Discharge Recommendations Home with Assistance, Outpatient PT Equipment Needed for Home Before FWW Discharge Transportation Needs at Discharge Private Vehicle
[2020-03-31 11:55] LABS: Hematocrit 25.8 % (41-53); Hemoglobin 8.8 g/dL (13.5-17.5); Mean Corpuscular HGB Conc 34.2 % (30-36); Mean Corpuscular Hemoglobin 29.7 PG (26-34); Mean Corpuscular Volume 86.7 fL (80-100); Platelet Count 165 X10^3/uL (150-400); Red Blood Cell Count 2.98 X10^6/uL (4.5-5.9)
--- NOTE | 2020-03-31 12:14 | P.DS_ITS ---
History of Present Illness History of Present Illness Date Patient Seen: 03/31/20 Time Patient Seen: 12:14 Chief complaint: OPB Narrative: Patient's pain is 3 to 6/10 currently well managed. Denies fever or chills. No nausea or vomiting. Discharge Providers Provider Discharge Date: 03/31/20 Primary care physician: Doctor Salo MD Consults: 03/28/20 08:43 Consult to Respiratory Therapy Evaluate & Treat Comment: Suspecte sleep apnea, referred to [facility] sleep medici Physician Instructions: Evaluate and treat 03/29/20 17:17 Consult to Discharge Planning Routine Comment: Consult to Physical Therapy Evaluate & Treat Comment: Physician Instructions: post op YENI protocol Consult to Respiratory Therapy Evaluate & Treat Comment: Physician Instructions: Evaluate and treat 03/30/20 14:25 Consult to Discharge Planning Routine Comment: Per PT recommendation: FWW at d/c Discharge provider: Vincent Keen PA-C Summary Hospital Course Discharge Diagnosis: right hip OA Hospital Course: right anterior [id number] YENI Same procedure as scheduled: Yes Indications: right HIP advacned OA resistant to further conservative measures Surgeon: [facility] Attendant: Vincent Keen Anesthesia Type: General and Spinal Operative Notes Findings: Right hip osteoarthritis with eburnation of the head as well as head and neck osteophytes. Acetabulum also showed [id number] arthritis with eburnation of the bone. Closure Type: primary Specimen(s): other (Head sent to pathology) Prosthetic devices, grafts, tissues, transplants, or devices: [employer] R3 cup 52 mm diameter 3 hole 2x 20mm screws 1x 25mm screw Biolox Delta ceramic 52 mm outside diameter by 36 mm inside diameter acetabular liner Size 7 anthology standard offset Delta Biolox ceramic head 36+ 4 mm Estimated Blood Loss (mL): 300 Patient admitted to the hospital for above-mentioned procedure. Patient consented to the same. Patient taken to the operating room underwent right anterior ceramic on ceramic total hip arthroplasty March 29, 2020. Patient back in his room recovering well as in stable condition. Patient had some postop hypotension responding well to bolus of fluids. Discharge home today in stable condition. Exam Vital Signs (past 8 hours): - 03/31/20 08:11 Temperature 98.7 F Pulse Rate 89 Respiratory Rate 20 Blood Pressure 121/71 Pulse Oximetry 100 Oxygen Delivery Method Room Air Oxygen Flow Rate 0 Narrative Exam Narrative: 35-year-old male resting comfortably in bedside chair in no apparent distress. Right hip dressing is clean, dry and intact. Motor functions intact distal right lower extremity. Both legs are warm and dry. Sensation grossly intact to light touch. Objective Labs Result Diagrams: 03/31/20 11:40 Labs: Laboratory Results - last 24 hr 03/31/20 11:40 WBC 10.0 D RBC 2.98 L Hgb 8.8 L Hct 25.8 L MCV 86.7 MCH 29.7 MCHC 34.2 RDW 13.0 Plt Count 165 PFSH Medical History Blood pressure elevated without history of HTN Hip bursitis IT band syndrome Lipoma of buttock Primary osteoarthritis of right hip Right knee pain (~2012) Suspected sleep apnea Tendinitis of right hip flexor Social History household members: significant other Smoking Status: Never smoker Discharge Assessment & Plan Assessment and Plan Assessment: Patient progressing as expected status post right total hip arthroplasty Plan of Treatment: Discharge home today in stable condition. Discharge Plan Discharge Plan Patient Disposition: Home Discharge orders & Medications Discharge Orders: Discharge (Order); Ordered 03/31/20 Ordered By: Vincent Keen Prescriptions: New acetaminophen 325 mg Tablet 650 mg PO TID Qty: 60 RF: 0 aspirin 81 mg Tablet,Delayed Release (Dr/Ec) 81 mg PO BID Qty: 60 RF: 0 docusate sodium [DOK] 100 mg Capsule 100 mg PO BID Qty: 10 RF: 0 polyethylene glycol 3350 17 gram Powder In Packet 17 gm PO DAILY PRN (Reason: Constipation) Qty: 20 RF: 0 oxycodone 5 mg Tablet 5 mg PO Q3HR PRN (Reason: Pain, Moderate (4-6)) Qty: 45 RF: 0 Discontinued acetaminophen 650 mg Tablet 650 mg PO Q6H PRN (Reason: Pain) RF: 0 Follow up/Referrals: Miscellaneous,MD Laura [Primary Care Provider] - Raffaele Allen MD [Physician] - (2 weeks) Diet/Activity/Treatments Diet: Diet as Tolerated Activity: WBAT Cold/Heat Therapy: ice as needed Skin/Wound/Dressing Care Report to your healthcare provider any signs of infection, such as:: chills, fever, increased pain, unusual drainage and unusual redness Dressing: keep clean and dry Visit Report/Discharge Packet Instructions: DI for Hip Replacement Stand Alone Forms: Surgery Discharge Discharge Data Primary Care Provider: Salo,Doctor Attending Provider: Raffaele Allen
--- NOTE | 2020-03-31 14:38 | PC.NURSE ---
Patient A/O x 4. Up ambulating with FWW. Reported pain 5/10, tolerating PRN medication. Pulses equal bilaterally, CMS intact, denies SOB, dizziness, lightheadedness. Voiding in urinal, BM this AM. Discharge instructions give to spouse and patient. Verbalized understanding to f/u with Dr. Goss in 2 weeks. IV removed, patient tolerated. Patient discharged via wheelchair accompanied by spouse and with aide assist.
== END 2020-03-31 14:15 | disposition home or self-care (01) | DRG 470 ==
LOC: OR 11:22 → AC 03-30 11:08
PROVIDERS: Internal Medicine; Nurse Practitioner Family; Orthopaedic Surgery; Physician Assistant Medical; Admitting Provider Orthopaedic Surgery Adult Reconstructive Orthopaedic Surgery; Referring Provider Orthopaedic Surgery Adult Reconstructive Orthopaedic Surgery; Visit Provider Orthopaedic Surgery Adult Reconstructive Orthopaedic Surgery
PROC: (CPT 27130; principal; 2020-03-29 13:15)
DX: M16.11 Unilateral primary osteoarthritis, right hip (principal); M25.751 Osteophyte, right hip; I95.9 Hypotension, unspecified; R55 Syncope and collapse
CPT/HCPCS: 27130; 36415; 72170; 81001; 85014; 85018; 85025; 85027; 86850; 86900; 86901; 97110; 97116; 97161; 97530; C1776; G0378; J0690; J1100; J1885; J2250; J2270; J2274; J2405; J2704; J3010